=== PATIENT | male | born 1980 | race Two or more races ===

== ENCOUNTER 2024-04-29 21:22 | Emergency (ER) | payer SELFPAY ==
[2024-04-29 21:29] VITALS: BMI 23.3
--- NOTE | 2024-04-29 21:29 | PD.EDADULT ---
ED General RME/HPI General Chief complaint: Medical Clearance Stated complaint: MEDICAL CLEARANCE Time Seen by Provider: 04/29/24 21:27 Arrival date/time: 04/29/24 21:22 CC: Medical clearance HPI patient presents the ER via EMS with a heart rate of 146 after smoking meth approximately 3 hours ago. Patient is handcuffed, in the custody of PD. Patient is awake alert oriented and cooperative. No specific complaints. Related Data Allergies Allergy/AdvReac Type Severity Reaction Status Date / Time No Known Allergies Allergy Verified 04/29/24 21:36 Review of Systems Review of Systems Narrative Review of Systems: GEN: No fever, no chills, no weight loss EYES: No discharge, no visual changes, no pain HEENT: No ear pain, no congestion, no sore throat PULM: No shortness of breath, no cough, no congestion CV: No chest pain, no dyspnea on exertion, no palpitations GI: No nausea, no vomiting, no diarrhea, no pain, no constipation : No frequency, no urgency, no dysuria MUSC/SKEL: No joint pain, no back pain SKIN: No rash PSYCH: No hallucinations, no depression HEME/LYMPH: No easy bleeding or bruising tendencies NEURO: No weakness, no headache ED Exam Narrative Physical exam: [General: Obese not in cot no acute distress Head normocephalic HEENT: Within acceptable limits Neck is supple nontender Chest equal chest rise nontender to palpation Respiratory: Clear to auscultation no wheezes crackles or rubs CV: Rate rhythm is regular, tachycardia, no murmurs rubs or clicks Abdomen is distended secondary to body habitus soft nontender no masses positive bowel sounds all 4 quadrants Back: No CVA tenderness no spinous process tenderness from cervical spine thoracic and lumbar spine Skin: Intact no petechiae rash induration ulceration or crepitus Extremities: Moving all extremity against resistance cap refill less than 2 seconds neurosensory intact Neuro: Awake alert oriented x3 Glascow coma 15 no focal deficits] Course Quality Measures none Orders Category Date Time Status Diazepam [Valium] Med 04/29/24 21:28 Discontinued 20 mg PO X1 ONE cloNIDine HCL [Catapres] Med 04/29/24 21:31 Discontinued 0.2 mg PO X1 ONE hydrALAZINE HCL [Apresoline] Med 04/29/24 21:31 Discontinued 25 mg PO X1 ONE Vital Signs Vital signs: Vital Signs Temperature 98.9 F 04/29/24 21:32 Pulse Rate 147 H 04/29/24 21:32 Respiratory Rate 19 04/29/24 21:32 Blood Pressure 141/101 H 04/29/24 21:32 Pulse Oximetry (%) 96 04/29/24 21:32 Oxygen Delivery Method Room Air 04/29/24 21:32 [facility] Patient data External records reviewed:: [facility] previous records Clinical information provided by:: patient and law enforcement Social determinants that could affect healthcare access:: substance use Patient has the following chronic illnesses:: Methamphetamine abuse How is presenting disease/condition affected by chronic disease/condition?: exacerbated by Evaluation data The following diagnostics were reviewed and interpreted by me:: other (specify) (None) Lab and/or radiology exams considered but not ordered:: None Interpretation Summary: Hypertension tachycardia cleared for alf Medications Medications considered but not ordered:: None Medication administrations:: Medication Administration History Discontinued Medications Clonidine (Clonidine Hcl 0.1 Mg Tablet) 0.2 mg PO X1 ONE Stop: 04/29/24 21:32 Last Admin: 04/29/24 21:36 Dose: 0.2 mg Documented By: OA Diazepam (Diazepam 5 Mg Tablet) 20 mg PO X1 ONE Stop: 04/29/24 21:29 Last Admin: 04/29/24 21:36 Dose: 20 mg Documented By: OA Hydralazine HCl (Hydralazine Hcl 25 Mg Tablet) 25 mg PO X1 ONE Stop: 04/29/24 21:32 Last Admin: 04/29/24 21:37 Dose: 25 mg Documented By: OA None Consultations Consultation(s) initiated? (list below): No Diagnosis Differential Diagnosis ED Complaint MDM: Hypertension tachycardia polysubstance abuse Most likely diagnosis given after review of the tests above:: Methamphetamine abuse cleared for medical clearance Admission Indicated Admission indicated?: not indicated Explain why admission is indicated or not indicated:: Stable for alf Admission Request Was there a request for admission?: No Disposition Plan Disposition Plan: Discharge Discharge Attestation Discharge Attestation: The patient and all family members were given an opportunity to ask questions and understood the discharge instructions. Discharge instructions specifically effects, indications for sooner follow up or return to the emergency department, and the expected course of current diagnosis. Patient condition: Stable Medical Decision Making Differential Diagnosis Differential Diagnosis: Hypertension tachycardia polysubstance abuse Discharge Plan Plan Patient Disposition: Halfway/Court/Law Patient condition on transfer: Stable Prescriptions/Referrals Referrals: No Primary/Family,Physician [Primary Care Provider] - In 1 week Problem List Clinical Impression: Medical clearance for incarceration, Tachycardia Patient/Caregiver Discharge Instructions Print Language: Japanese PA/[employer] Supervising Physician PA/[employer] Supervising Physician: Pipe Stallworth ENP
[2024-04-29 21:32] VITALS: BP 141/101; PULSE 147; RESP 19; TEMP 37.2; O2SAT 96
[2024-04-29 21:36] VITALS: BP 141/101; PULSE 147
[2024-04-29] MEDS: DIAZEPAM 5 MG TABLET 20 MG PO (21:36)
[2024-04-29] MEDS: cloNIDine HCL 0.1 MG TABLET 0.2 MG PO (21:36)
[2024-04-29 21:37] VITALS: BP 141/101; PULSE 147
[2024-04-29] MEDS: hydrALAZINE HCL 25 MG TABLET PO (21:37)
[2024-04-29 22:34] VITALS: BP 95/62; PULSE 118
== END 2024-04-29 22:51 ==
PROVIDERS: Emergency Provider Emergency Medicine
DX: Z02.89 Encounter for other administrative examinations (principal); R00.0 Tachycardia, unspecified; F15.10 Other stimulant abuse, uncomplicated; I10 Essential (primary) hypertension
CPT/HCPCS: 99282; A9270